=== PATIENT | male | born 1970 | race Caucasian/White ===

== ENCOUNTER 2023-12-14 10:10 | Day surgery (SDC) | payer OTHER ==
[2023-12-13 11:59] VITALS: BMI 23.8
[~2023-12-14 10:10] MED LIST: ALPRAZolam 0.25 MG TAB PO PRN; ALPRAZolam 0.5 MG TAB PO PRN; ASPIRIN 325 MG TAB PO STA; HEPARIN SODIUM,PORCINE (1 ML) 2,500 UNIT in SODIUM CHLORIDE 0.9% 250 ML IRRIGATION PRN; HEPARIN SODIUM,PORCINE 10,000 UNIT in SODIUM CHLORIDE 0.9% 1,000 ML IRRIGATION PRN; NITROGLYCERIN SL TABS 0.4 MG TAB SUBLINGUAL PRN
[2023-12-14] MEDS ORDERED: SODIUM CHLORIDE 0.9% 1,000 ML IV ONE (10:21)
[2023-12-14] MEDS ORDERED: VERAPAMIL 2.5 MG/ML 2 ML AMP ONE (11:44)
[2023-12-14] MEDS ORDERED: fentaNYL (PF) 50 MCG/ML 2 ML AMP ONE (11:44)
[2023-12-14] MEDS ORDERED: LIDOCAINE 1% INJ 10MG/ML (20 ML MDV) ONE (11:44)
[2023-12-14] MEDS ORDERED: HEPARIN SODIUM 1,000 UN/ML (10ML VL) ONE (11:44)
[2023-12-14] MEDS ORDERED: fentaNYL (PF) 50 MCG/ML 2 ML AMP IVP ONE (12:03)
[2023-12-14] MEDS ORDERED: MIDAZOLAM 2 MG/2 ML VIAL IVP ONE (12:03)
[2023-12-14] MEDS ORDERED: LIDOCAINE 1% INJ 10MG/ML (20 ML MDV) SQ ONE (12:05)
[2023-12-14 12:35] LABS: O2 Sat Blood Gas 67.8 %
[2023-12-14 12:37] LABS: O2 Sat Blood Gas 60.1 %
[2023-12-14] MEDS ORDERED: IOPAMIDOL-370 100ML BTL INJ ONE (12:50)
--- NOTE | 2023-12-14 16:14 | P.CARDCATH ---
Description of Procedure: PROCEDURES PERFORMED: Left and right heart catheterization, bilateral coronary angiography, ultrasound guided arterial access INDICATION: Unstable angina CONSENT:I have discussed the risks, benefits and alternative therapies for the above-mentioned procedure and for both sedation/analgesia as well as necessary blood product administration, if indicated, as they pertain to this patient. The patient has indicated understanding and acceptance of the risks and procedures discussed. PROCEDURE: After the risks, benefits and alternatives of the above mentioned procedure explained in detail with the patient, informed consent was obtained. Patient was taken to the catheterization lab and prepped and draped in usual fashion. Ultrasound guidance was used to assess for arterial access. There was no good venous access and given concern of prior fistula on left and right upper extremities, femoral approach was recommended. 1% lidocaine was used to anesthetize the right femoral area. A 6-Bur[place]ian sheath was placed in the right femoral artery and vein using modified Seldinger technique and ultrasound guidance. A 6Fr [place] Fariba catheter was advanced into the RA, RV, PA, PCWP position and pressure and oxygen saturations were obtained. Thermodilution was performed. Left coronary angiography was performed with a 6-[place]ian JL 4.0 catheter and right coronary angiography was performed with a 6-Bur[place]ian FR4 catheter in various views. A 6-[place] FR4 catheter was inserted into the left ventricle and pressure measurements were obtained. The right femoral angiogram was performed which showed inadequate anatomy for closure and therefore sheath left in place for manual closure. The patient tolerated the procedure well. Patient was transported back to the post catheterization holding area in stable condition. Conscious Sedation: Patient was monitored under the direct supervision of myself for conscious sedation using Versed and fentanyl for a total duration of 30 minutes HEMODYNAMICS: Ao: 172/56 LV: 171/3, LVEDP 16mmHg PCWP: 17 PA: 63/8 (33) RV: 67/1 RA: 8 PA oxygen saturation: 68% RA oxygen saturation: 60% FA oxygen saturation: 86% CO by BALDEV: 7.8 L/min CI by BALDEV: 4.5 L/min/m2 CO by thermodilution: 6.4 L/min CI by thermodilution: 3.74 L/min/m2 SELECTIVE CORONARY ARTERIOGRAPHY: LEFT MAIN: The left main is a large caliber vessel which bifurcates into the LAD and circumflex. There is no significant stenosis. LEFT ANTERIOR DESCENDING CORONARY ARTERY: LAD is a large caliber vessel which wraps around to the apex. There is a proximal LAD 90% stenosis and a mid LAD 50-60% more focal stenosis and otherwise mild luminal irregularities. There are left to right collaterals to the PDA. LEFT CIRCUMFLEX CORONARY ARTERY: Left circumflex is a moderate caliber vessel with a proximal 50-60% and mid 50% stenosis. RIGHT CORONARY ARTERY: The right coronary artery is a large caliber vessel which gives off a PDA and PLV branch and is the dominant vessel. There is a proximal 85% stenosis followed by a 50% mid RCA stenosis. FINAL IMPRESSION: 1. CAD as described above with 90% proximal LAD, 50-60% mid LAD, 50-60% circumflex and 85% proximal RCA stenosis 2. High normal left sided filling pressures 3. Pulmonary hypertension likely component of Group 2 and Group 3 4. Hypoxia with oxygen saturations dropping into 80's on room air 5. Normal cardiac output PLAN: 1. Aggressive risk factor modification per most recent ACC/AHA guidelines. 2. CABG evaluation and if deemed high risk would proceed with PCI RCA/LAD.
[2023-12-14] MEDS: SODIUM CHLORIDE 0.9% 1,000 ML in EMPTY BAG 1 BAG IV SCH ×2 (16:27→21:56)
[2023-12-14] MEDS ORDERED: ACETAMINOPHEN TAB 500 MG TAB PO PRN (21:07)
[2023-12-14] MEDS ORDERED: amLODIPine 10 MG TAB PO SCH (21:15)
[2023-12-14] MEDS ORDERED: METOPROLOL SUCCINATE (ER) 25 MG TAB.ER.24H PO SCH (21:15)
[2023-12-14] MEDS ORDERED: MONTELUKAST 10 MG TAB PO SCH (21:15)
[2023-12-14] MEDS ORDERED: lisinopriL 20 MG TAB PO SCH (21:15)
[2023-12-14] MEDS ORDERED: DOXAZOSIN 2 MG TAB PO SCH (21:15)
[2023-12-15] MEDS: cloNIDine HCL 0.1 MG TAB PO SCH ×2 (00:36→08:17)
[2023-12-15 00:45] VITALS: RESP 16
[2023-12-15] MEDS ORDERED: SEVELAMER 800 MG TAB PO SCH (07:30)
[2023-12-15] MEDS ORDERED: FUROSEMIDE 80 MG TAB PO SCH (09:00)
[2023-12-15] MEDS ORDERED: ASPIRIN 81 MG PO SCH (09:00)
[2023-12-15 09:04] VITALS: BP 152/65; PULSE 63; TEMP 99
--- NOTE | 2023-12-15 11:15 | P.DS ---
Providers Attending physician: Kenneth Kingsley DO Primary care physician: Physician [facility] Course: Patient is pleasant 53-year-old male with history of end-stage renal disease who has been having progressive dyspnea on exertion and chest pain concerning for unstable angina and therefore recommended to have heart catheterization performed. Patient had heart catheterization from a right femoral sites on 12/14 which showed multivessel CAD with recommendations for bypass. He was about by cardiothoracic surgery with outpatient follow-up. He did have a right femoral hematoma which was reduced with Femstop and currently without any hematoma today. He did miss his morning dialysis which is normally Wednesday and Wednesday. We discussed with nephrology and patient is scheduled for makeup session on 12/16 at his normal dialysis center. Plan - Discharge Summary Discharge Rx Participant: No New Discharge Prescriptions: No Action cloNIDine HCL [Catapres] 0.1 mg PO Q8HR Sevelamer Carbonate 800 mg PO AC-TID lisinopriL [Zestril] 40 mg PO HS amLODIPine [Norvasc] 10 mg PO HS Terazosin [Hytrin] 2 mg PO HS Montelukast [Singulair] 10 mg PO HS Metoprolol Succinate [Metoprolol Succinate ER] 25 mg PO HS Furosemide [Lasix] 80 mg PO BID Acetaminophen [Tylenol Extra Strength] 500 mg PO Q8HR PRN PRN Reason: Pain Aspirin 81 mg PO DAILY Discharge Medication List Acetaminophen [Tylenol Extra Strength] 500 mg PO Q8HR PRN 12/13/23 [History] Furosemide [Lasix] 80 mg PO BID 12/13/23 [History] Metoprolol Succinate [Metoprolol Succinate ER] 25 mg PO HS 12/13/23 [History] Montelukast [Singulair] 10 mg PO HS 12/13/23 [History] Terazosin [Hytrin] 2 mg PO HS 12/13/23 [History] amLODIPine [Norvasc] 10 mg PO HS 12/13/23 [History] lisinopriL [Zestril] 40 mg PO HS 12/13/23 [History] Aspirin 81 mg PO DAILY 12/14/23 [History] Sevelamer Carbonate 800 mg PO AC-TID 12/14/23 [History] cloNIDine HCL [Catapres] 0.1 mg PO Q8HR 12/14/23 [History] Follow up Appointment(s)/Referral(s): Kenneth Kingsley DO [STAFF PHYSICIAN] - 12/23/23 8:45 am Asher Farmer MD [STAFF PHYSICIAN] - 1 Week (Office will call you with appointment date and time) Patient Instructions/Handouts: *Surgery [facility] - After Heart Catheterization - Clinical Research Analyst Instructions Activity/Diet/Wound Care/Special Instructions: Go to dialysis on 12/16 at 6 am for missed dialysis. No driving for two days. Avoid heavy lifting greater than 10 lbs , pushing, pulling, straining, flights of stairs for three days. ok to shower tomorrow but no baths, pools, soaking in tubs for three days to avoid risk of infection. signs of infection ie: fever, rash, drainage from puncture site, swelling contact doctor or return to ER immediately. Heavy bleeding from puncture site apply firm direct pressure and return to ER. Do not attempt to drive self. low sodium/low fat diet Medications as directed by director social welfare.
== END 2023-12-15 12:27 | disposition home or self-care (01) ==
LOC: CATHCVL 10:10 → 6NMEDSUR 12:36 → CATHCVL 12-15 12:27
PROVIDERS: ATTEND Internal Medicine
DX: I25.10 Atherosclerotic heart disease of native coronary artery without angina pectoris (principal); I27.20 Pulmonary hypertension, unspecified; N18.6 End stage renal disease; Z99.2 Dependence on renal dialysis; Z79.82 Long term (current) use of aspirin; Z79.899 Other long term (current) drug therapy
CPT/HCPCS: 93460; 76937; 85018; 82810; C1769 ×3; C1894 ×2; C1751; J2250; J2001; J3010; Q9967

== ENCOUNTER 2024-01-19 11:06 | Day surgery (SDC) | payer OTHER ==
[2024-01-19] MEDS: SODIUM CHLORIDE 0.9% 500 ML 500 ML IV ONE (11:18)
[2024-01-19 11:37] VITALS: RESP 16; TEMP 97.9
[2024-01-19] MEDS ORDERED: fentaNYL (PF) 50 MCG/ML 2 ML AMP ONE (11:43)
[2024-01-19] MEDS: BENZOCAINE SPRAY 1 CAN TOPICAL ONE (11:56)
[2024-01-19] MEDS: fentaNYL (PF) 50 MCG/ML 2 ML AMP IVP ONE (12:00)
[2024-01-19] MEDS: MIDAZOLAM 2 MG/2 ML VIAL IVP ONE ×2 (12:00→12:02)
--- NOTE | 2024-01-19 13:13 | P.TEE ---
Description of Procedure(s): Procedure performed: Transesophageal Echocardiogram with color flow doppler, pulsed wave doppler and continuous wave doppler, moderate conscious sedation Moderate conscious sedation: Moderate conscious sedation was supplied with direct supervision of myself using Versed and Fentanyl. Complications: none Indications: Mitral regurgitation with need for CABG PROCEDURE: After the risks, benefits and alternatives of the above mentioned procedure was explained in detail with the patient, informed consent was obtained. Patient was brought to the lab in a fasting state. Patient was given IV Versed and Fentanyl for sedation. The throat was sprayed with Hurricane to anesthetize the throat. A lubricated Omni probe was then introduced into the esophagus and stomach and multiple views were obtained. 2D echo with color flow doppler, pulsed wave doppler and continuous wave doppler was utilized. Agitated saline bubbles were injected to assess for any intra-atrial shunt. The probe was then removed. Patient tolerated the procedure well. Patient was transferred to the post procedure area in stable and satisfactory condition. FINDINGS: 1. The aortic valve is tricuspid with aortic calcification and mild aortic stenosis. 2. The mitral valve has mild posterior leaflet calcification and moderate s econdary mitral regurgitation. Vena contractor 0.6, systolic blunting all consistent with moderate mitral regurgitation. 3. Tricuspid valve appears to be normal with moderate tricuspid regurgitatio n. 4. The interatrial septum is intact. No evidence of PFO. 5. Left atrial appendage is free of clot. 6. Left ventricular ejection fraction 55%
[2024-01-19 13:22] VITALS: BP 172/88; PULSE 59
== END 2024-01-19 13:12 | disposition home or self-care (01) ==
LOC: CATHCVL 11:06
PROVIDERS: ATTEND Internal Medicine
DX: I08.3 Combined rheumatic disorders of mitral, aortic and tricuspid valves (principal); I25.10 Atherosclerotic heart disease of native coronary artery without angina pectoris; I12.0 Hypertensive chronic kidney disease with stage 5 chronic kidney disease or end stage renal disease; N18.6 End stage renal disease; I48.0 Paroxysmal atrial fibrillation; E78.5 Hyperlipidemia, unspecified; Z95.5 Presence of coronary angioplasty implant and graft; Z99.2 Dependence on renal dialysis; Z79.899 Other long term (current) drug therapy; Z88.0 Allergy status to penicillin; Z79.82 Long term (current) use of aspirin
CPT/HCPCS: 93312; 93320; 93325; J2250; J3010

== ENCOUNTER 2024-01-31 13:43 | Emergency (ER) | payer OTHER ==
--- NOTE | 2024-01-31 13:51 | ED ---
General Adult HPI - General Stated complaint: Bump on hand Time Seen by Provider: 01/31/24 13:49 Source: patient, RN notes reviewed, old records reviewed - History of Present Illness Initial comments: This is a 53-year-old male who presents to the emergency department stating that he took a nap earlier today and when he woke up there was a small bump that was bluish in color on his right hand between the fourth and fifth metacarpal. Patient states it hurts to touch. Patient denies knowing of any trauma but he states he could have hit it while he was sleeping. Patient denies any bony tenderness. Patient denies any range of motion problems with the fingers or hand. Patient has no other complaints. - Related Data Home Medications Medication Instructions Recorded Confirmed Furosemide [Lasix] 80 mg PO BID 12/13/23 01/19/24 Metoprolol Succinate [Metoprolol 25 mg PO HS 12/13/23 01/19/24 Succinate ER] Montelukast [Singulair] 10 mg PO HS 12/13/23 01/19/24 Terazosin [Hytrin] 2 mg PO HS 12/13/23 01/19/24 amLODIPine [Norvasc] 10 mg PO HS 12/13/23 01/19/24 lisinopriL [Zestril] 40 mg PO HS 12/13/23 01/19/24 Sevelamer Carbonate 800 mg PO AC-TID 12/14/23 01/19/24 cloNIDine HCL [Catapres] 0.1 mg PO Q8HR 12/14/23 01/19/24 Isosorbide Mononitrate ER [Imdur] 30 mg PO DAILY 01/19/24 01/19/24 Allergies Allergy/AdvReac Type Severity Reaction Status Date / Time Penicillins AdvReac "I was a Verified 01/19/24 11:30 baby and i almost ." Review of Systems ROS Statement: Those systems with pertinent positive or pertinent negative responses have been documented in the HPI. ROS Other: All systems not noted in ROS Statement are negative. General Exam - General Exam Comments Initial Comments: GENERAL Patient is well-developed and well-nourished. Patient is in mild distress. EYES Patient's pupils are equal and round. Extraocular motion is intact SKIN Unremarkable NEURO The patient is alert and oriented -3 PYSCH Patient has normal interpersonal interactions. MUSCULOSKELETAL Patient's dorsal aspect of the right hand between the distal aspect of the fourth and fifth metacarpal is a small 1 cm hematoma. Patient has no bony tenderness Medical Decision Making - Medical Decision Making Was pt. sent in by a medical professional or institution (ANNA Mukherjee, FLOORING SALES MANAGER, urgent care, hospital, or halfway...) When possible be specific @ -No Did you speak to anyone other than the patient for history (EMS, parent, family, police, friend...)? What history was obtained from this source @ -No Did you review nursing and triage notes (agree or disagree)? Why? @ -I reviewed and agree with nursing and triage notes Were old charts reviewed (outside hosp., previous admission, EMS record, old EKG, old radiological studies, urgent care reports/EKG's, halfway records)? Report findings @ -No old charts were reviewed Differential Diagnosis (chest pain, altered mental status, abdominal pain women, abdominal pain men, vaginal bleeding, weakness, fever, dyspnea, syncope, headache, dizziness, GI bleed, back pain, seizure, CVA, palpatations, mental health, musculoskeletal)? @ -Not applicable EKG interpreted by me (3pts min.). @ -As above X-rays interpreted by me (1pt min.). @ -None done CT interpreted by me (1pt min.). @ -None done U/S interpreted by me (1pt. min.). @ -None done What testing was considered but not performed or refused? (CT, X-rays, U/S, labs)? Why? @ -None What meds were considered but not given or refused? Why? @ -None Did you discuss the management of the patient with other professionals (pro fessionals i.e. ANNA Mukherjee, FLOORING SALES MANAGER, lab, RT, psych nurse, social services analyst, sociology instructor, teacher, customs and border protection officer, wrapper caser)? Give summary @ -No Was smoking cessation discussed for >3mins.? @ -No Was critical care preformed (if so, how long)? @ -No Were there social determinants of health that impacted care today? How? (Homelessness, low income, unemployed, alcoholism, drug addiction, transportation, low edu. Level, literacy, decrease access to med. care, [facility], rehab)? @ -No Was there de-escalation of care discussed even if they declined (Discuss DNR or withdrawal of care, Hospice)? DNR status @ -No What co-morbidities impacted this encounter? (DM, HTN, Smoking, COPD, CAD, Cancer, CVA, ARF, Chemo, Hep., AIDS, mental health diagnosis, sleep apnea, morbid obesity)? @ -None Was patient admitted / discharged? Hospital course, mention meds given and route, prescriptions, significant lab abnormalities, going to OR and other pertinent info. @ -Patient has a hematoma on the hand there is no bony tenderness patient will be discharged home Undiagnosed new problem with uncertain prognosis? @ -No Drug Therapy requiring intensive monitoring for toxicity (Heparin, Nitro, Insulin, Cardizem)? @ -No Were any procedures done? @ -No Diagnosis/symptom? @ -Hematoma hand Acute, or Chronic, or Acute on Chronic? @ -Acute Uncomplicated (without systemic symptoms) or Complicated (systemic symptoms)? @ -Uncomplicated Side effects of treatment? @ -No Exacerbation, Progression, or Severe Exacerbation? @ -No Poses a threat to life or bodily function? How? (Chest pain, [place], [place], pneumonia, PE, COPD, DKA, ARF, appy, cholecystitis, CVA, Diverticulitis, Homicidal, Suicidal, threat to staff... and all critical care pts) @ -No Disposition Clinical Impression: Hematoma of hand Disposition: HOME SELF-CARE Condition: Good Instructions (If sedation given, give patient instructions): Hematoma (ED) Is patient prescribed a controlled substance at d/c from ED?: No Referrals: Nonstaff,Physician [Primary Care Provider] - 1-2 days Time of Disposition: 13:51
[2024-01-31 14:37] VITALS: BP 183/87; PULSE 68; RESP 16; TEMP 97.7
== END 2024-01-31 14:51 | disposition home or self-care (01) ==
LOC: EC 13:43
DX: S60.221A Contusion of right hand, initial encounter (principal); Z88.0 Allergy status to penicillin; X58.XXXA Exposure to other specified factors, initial encounter
CPT/HCPCS: 99284

== ENCOUNTER → 2024-10-19 | Day surgery (SDC) | payer OTHER ==
[~2024-10-19] MED LIST changes: -ASPIRIN 325 MG TAB PO STA; +ASPIRIN 81 MG PO SCH; +ATORVASTATIN 20 MG TAB PO SCH; +ATORVASTATIN 80 MG TAB PO ONE; +ATROPINE SULFATE 0.1 MG/ML 10ML SYRINGE IV PRN; +CLOPIDOGREL 75 MG TAB PO SCH; +FUROSEMIDE 80 MG TAB PO SCH; -HEPARIN SODIUM,PORCINE (1 ML) 2,500 UNIT in SODIUM CHLORIDE 0.9% 250 ML IRRIGATION PRN; -HEPARIN SODIUM,PORCINE 10,000 UNIT in SODIUM CHLORIDE 0.9% 1,000 ML IRRIGATION PRN; +ISOSORBIDE MONONITRATE ER 30 MG TAB.ER.24H PO SCH; +MAG HYDROX/AL HYDROX/SIMETH 30 ML CUP PO PRN; +METOPROLOL SUCCINATE (ER) 25 MG TAB.ER.24H PO SCH; +MONTELUKAST 10 MG TAB PO SCH; +RX INFO: IV CONTRAST WAS GIVEN 1 EACH MISC MISCELLANE PRN; +SEVELAMER 800 MG TAB PO SCH; +TERAZOSIN 2 MG PO SCH; +ZOLPIDEM 5 MG TAB PO PRN; +amLODIPine 10 MG TAB PO SCH; +cloNIDine HCL 0.1 MG TAB PO SCH; +lisinopriL 20 MG TAB PO SCH
[2024-10-19] MEDS: SODIUM CHLORIDE 0.9% 1,000 ML in EMPTY BAG 1 BAG IV SCH (09:39)
[2024-10-19] MEDS: ASPIRIN 325 MG TAB PO ONE (09:39)
[2024-10-19 10:32] LABS: Basophils % (A) 0 %; Eosinophils # (A) 0.1 k/uL (0-0.7); Eosinophils % (A) 2 %; HCT 33.2 % (39.0-53.0); HGB 11.4 gm/dL (13.0-17.5); Lymphocytes # (A) 1.1 k/uL (1.0-4.8); Lymphocytes % (A) 16 %; MCH 30.9 pg (25.0-35.0); MCHC 34.2 g/dL (31.0-37.0); MCV 90.4 fL (80.0-100.0); Mean Platelet Volume 7.9; Monocytes # (A) 0.5 k/uL (0-1.0); Monocytes % (A) 8 %; Neutrophils # (A) 4.7 k/uL (1.3-7.7); Neutrophils % (A) 72 %; Platelet Count 142 k/uL (150-450); RBC 3.68 m/uL (4.30-5.90); WBC 6.5 k/uL (3.8-10.6)
[2024-10-19 10:37] LABS: African American GFR (CKD) 8 (>60 ml/min/1.73 sqM); Anion Gap 6 mmol/L; Blood Urea Nitrogen 42 mg/dL (9-20); Carbon Dioxide 40 mmol/L (22-30); Chloride 94 mmol/L (98-107); Glucose 110 mg/dL (74-99); Non-African American GFR(CKD) 7 (>60 ml/min/1.73 sqM); Potassium 4.2 mmol/L (3.5-5.1); Sodium 140 mmol/L (137-145)
[2024-10-19] MEDS: IV FLUID CONTINUATION 1,000 ML IV ONE (10:40)
[2024-10-19] MEDS: SODIUM CHLORIDE 0.9% 1,000 ML IV ONE (10:58)
[2024-10-19] MEDS: HEPARIN SODIUM,PORCINE (1 ML) 2,500 UNIT in SODIUM CHLORIDE 0.9% 250 ML IRRIGATION PRN (10:58)
[2024-10-19] MEDS: HEPARIN SODIUM,PORCINE 10,000 UNIT in SODIUM CHLORIDE 0.9% 1,000 ML IRRIGATION PRN (10:58)
[2024-10-19 11:12] VITALS: RESP 16; TEMP 98.3
[2024-10-19] MEDS: fentaNYL (PF) 50 MCG/1 ML VIAL IVP ONE (11:25)
[2024-10-19] MEDS: MIDAZOLAM 2 MG/2 ML VIAL IVP ONE (11:25)
[2024-10-19] MEDS: LIDOCAINE 1% INJ 10MG/ML (20 ML MDV) SQ ONE (11:26)
[2024-10-19] MEDS: HEPARIN SODIUM 1,000 UN/ML (10ML VL) IVP ONE ×2 (11:30→11:34)
[2024-10-19] MEDS: NITROGLYCERIN 1000MCG/10ML SYRINGE INTRACORON ONE (11:39)
[2024-10-19] MEDS: IOPAMIDOL-370 100ML BTL INJ ONE ×2 (11:59→12:12)
[2024-10-19] MEDS: NITROGLYCERIN SL TABS 0.4 MG TAB SUBLINGUAL ONE (12:06)
--- NOTE | 2024-10-19 14:50 | P.PRCINT ---
Percutaneous Coronary Int. - Percutaneous Coronary Intervention Percutaneous Coronary Intervention: PROCEDURES PERFORMED: Left heart catheterization, bilateral coronary angiography, ultrasound guided arterial access, IVUS RCA, PCI RCA with a 3.5 x 12mm Xience RL, post dilated with a 4.0mm NC balloon INDICATION: Previous non-STEMI, chest pain [place] Heart Association class III symptoms with known CAD, patient refusing CABG CONSENT:I have discussed the risks, benefits and alternative therapies for the above-mentioned procedure and for both sedation/analgesia as well as necessary blood product administration, if indicated, as they pertain to this patient. The patient has indicated understanding and acceptance of the risks and procedures discussed. PROCEDURE: After the risks, benefits and alternatives of the above mentioned procedure explained in detail with the patient, informed consent was obtained. Patient was taken to the catheterization lab and prepped and draped in usual fashion. Ultrasound guidance was used to assess for arterial access. 1% lidocaine was used to anesthetize the right femoral artery given history of bilateral fistula UE. A 6-Malagasy sheath was placed in the right femoral artery using modified Seldinger technique and ultrasound guidance. Left coronary angiography was performed with a 6-[place]ag[place] CLS 3.0 catheter and right coronary angiography was performed with a 6-Malag[place] AL0.75 catheter in various views. A 5-[place]ag[place] FR5 catheter was inserted into the left ventricle and pressure measurements were obtained. The decision was made to perform PCI of the RCA. A 6-[place]ag[place] AL 0.75 guide was used to engage the RCA. A 0.014 BMW wire was advanced to the distal RCA. There was more diffuse mid to distal RCA disease however mainly felt best treated with the more focal proximal 90% stenosis. The dilation was performed with a 3.0 x 8 mm balloon. Next a neurovascular ultrasound showed reference vessel 3.5 mm with more aneurysmal midportion up to 5 mm. Next a 3.5 x 12 mm drug-eluting stent was placed in the proximal RCA. Repeated IV ultrasound showed some under expansion therefore the mid to distal portion was postdilated with a 4.0 noncompliant balloon. Repeat intravascular ultrasound showed well-expanded stent with no dissection. Final angiograms were performed. Preintervention there was 90% stenosis and LIA-3 flow and postintervention there was less than 10% stenosis with LIA 3 flow. Patient did have recurrence of chest pain and therefore angiogram was performed which showed patent RCA. The right femoral angiogram showed adequate anatomy for closure and therefore a 6Fr Angioseal was placed with hemostasis achieved. The patient tolerated the procedure well. Patient was transported back to the post catheterization holding area in stable condition. Conscious Sedation: Patient was monitored under the direct supervision of myself for conscious sedation using Versed and fentanyl for a total duration of 44 minutes HEMODYNAMICS: Ao: 143/71 LV: 156/8, LVEDP 12 SELECTIVE CORONARY ARTERIOGRAPHY: LEFT MAIN: The left main is a large caliber vessel which bifurcates into the LAD and circumflex. There is no significant stenosis. LEFT ANTERIOR DESCENDING CORONARY ARTERY: LAD is a large caliber vessel which wraps around to the apex. There is a proximal LAD 80% stenosis and a mid LAD 50-60% more focal stenosis and otherwise mild luminal irregularities. There are left to right collaterals to the PDA. LEFT CIRCUMFLEX CORONARY ARTERY: Left circumflex is a moderate caliber vessel with a proximal 60-70% and mid 50% stenosis. RIGHT CORONARY ARTERY: The right coronary artery is a large caliber vessel which gives off a PDA and PLV branch and is the dominant vessel. There is a proximal 90% stenosis followed by a 50% mid RCA stenosis. FINAL IMPRESSION: 1. CAD as described above with 80% proximal LAD, 50-60% mid LAD, 60-70% cir cumflex and 90% proximal RCA stenosis 2. S/p PCI RCA with a 3.5 x 12mm Xience RL, post dilated with a 4.0mm NC balloon PLAN: 1. Aggressive risk factor modification per most recent ACC/AHA guidelines. 2. Monitor response of PCI of RCA. If continues to have angina, may conisder PCI of left main into LAD 3. Continue dual antiplatelets with aspirin and Plavix for 6 months
[2024-10-19 18:09] VITALS: BP 166/76; PULSE 60
== END ==
LOC: CATHCVL 09:12
PROVIDERS: ATTEND Internal Medicine
DX: I25.10 Atherosclerotic heart disease of native coronary artery without angina pectoris (principal); I48.0 Paroxysmal atrial fibrillation; I12.0 Hypertensive chronic kidney disease with stage 5 chronic kidney disease or end stage renal disease; N18.6 End stage renal disease; Z99.2 Dependence on renal dialysis; I35.0 Nonrheumatic aortic (valve) stenosis; E78.5 Hyperlipidemia, unspecified; Z79.02 Long term (current) use of antithrombotics/antiplatelets; Z79.899 Other long term (current) drug therapy; Z86.74 Personal history of sudden cardiac arrest; Z88.0 Allergy status to penicillin
CPT/HCPCS: 92978; 93458; 80048; 85025; C9600; J2250; J1644 ×3; J2003; Q9967; J3010; J2305

== ENCOUNTER → 2025-01-16 | Outpatient (CLI) | payer OTHER ==
--- NOTE | 2025-01-16 08:54 | US ---
EXAMINATION TYPE: US abdomen complete DATE OF EXAM: 01/16/2025 COMPARISON: CT chest 01/17/2024 CLINICAL INDICATION: Male, 54 years old with history of R10.84 GENERALIZED ABDOMINAL PAIN; Epigastric pain, diarrhea TECHNIQUE: Grayscale and color Doppler imaging of the abdomen was performed. FINDINGS: EXAM MEASUREMENTS: Liver Length: 13.6 cm Gallbladder Wall: 0.2 cm CBD: 0.8 cm Spleen: 12.9 cm Right Kidney: 9.1 x 3.8 x 4.7 cm Left Kidney: 9.8 x 3.8 x 3.1 cm Pancreas: visualized portions wnl, limited by overlying midline bowel gas Liver: wnl Gallbladder: wnl Evidence for sonographic Huggins's sign: no CBD: dilated Spleen: multiple tiny echogenic foci throughout Right Kidney: multiple cysts with largest measuring 2.0cm Left Kidney: multiple cysts with largest measuring 2.4cm Upper IVC: wnl Abd Aorta: wnl The visualized portions of the pancreas unremarkable. The liver is within normal limits without focal lesion. Gallbladder demonstrates no shadowing calculi, wall thickening or surrounding fluid. Negativ e sonographic Huggins's sign. Common bile duct is mildly dilated. Multiple echogenic foci are demonstr ated throughout the spleen suggesting calcified granulomas. No hydronephrosis or solid renal masses. No renal shadowing calculi. Multiple simple appearing cysts identified within both kidneys. There is loss of cortical medullary differentiation bilaterally with cortical thinning. The intrahepatic porti on of the IVC and proximal abdominal aorta are within normal limits. IMPRESSION: 1. Mildly dilated common bile duct. Correlation with biliary labs is recommended. Consider further ev aluation with MRCP as clinically indicated. 2. Bilateral renal cysts with findings suggestive of chronic medical renal disease. [facility], , 01/16/2025 8:52 AM
== END | disposition home or self-care (01) ==
LOC: RADUSWWP 07:54
PROVIDERS: ATTEND Family Medicine
DX: K83.8 Other specified diseases of biliary tract (principal); N28.1 Cyst of kidney, acquired
CPT/HCPCS: 76700

== ENCOUNTER → 2025-02-15 | Outpatient (CLI) | payer OTHER ==
--- NOTE | 2025-02-15 12:23 | MR ---
EXAMINATION TYPE: MR MRCP DATE OF EXAM: 02/15/2025 10:36 AM COMPARISON: Ultrasound 01/16/2025 CLINICAL INDICATION: Male, 54 years old with history of K83.8 common bile duct dilation, Dilation Com mon bile duct, Abdominal pain, Abnormal US TECHNIQUE: Multiplanar, multisequence images of the abdomen are obtained without IV contrast. Highly T2 weighted sequences of the pancreatic biliary system also obtained for MRCP. Rotational 3-D reconst ructions generated on a dedicated independent workstation. FINDINGS: Heart is borderline enlarged. No pericardial or pleural effusion. The liver appears low signal on in phase T1-weighted sequence which may be seen with heavy metal depo sition. Suggestion of some possible signal loss within the spleen as well. Spleen mildly enlarged at 14.6 cm measured on coronal series. Numerous cysts replacing most of the renal parenchyma both sides measuring up to 3.3 cm. Diffuse chino l cortical thinning. No hydronephrosis. Gallbladder appears within normal limits. The bile duct is mildly dilated at 8 mm but shows normal di stal tapering. No abnormal filling defect is identified. Main pancreatic duct at the level of the pancreatic head is upper limits of normal in caliber at 4 mm . No distal obstructing lesion is seen. Adrenal glands and pancreas otherwise within normal limits. No ascites fluid, abdominal lymphadenopathy, or gross bowel abnormality is seen. IMPRESSION: 1. No gallstones. The bile duct is mildly dilated at 8 mm but shows normal distal tapering. Probably chronic for the patient. No choledocholithiasis or other abnormal filling defect is identified. Corre late for normal alkaline phosphatase and bilirubin levels. 2. Signal loss within both the liver and spleen on in-phase T1 sequence may be seen with iron deposit ion such as in the setting of secondary hemochromatosis. Clinically correlate. 3. Mild splenomegaly at 14.6 cm. 4. Multicystic kidneys and diffuse cortical thinning. Correlate for any known history of polycystic k idney disease. [facility], , 02/15/2025 12:21 PM
== END | disposition home or self-care (01) ==
LOC: RADMRIMAIN 09:24
PROVIDERS: ATTEND Family Medicine
DX: K83.8 Other specified diseases of biliary tract (principal); R16.1 Splenomegaly, not elsewhere classified; N28.1 Cyst of kidney, acquired; K76.89 Other specified diseases of liver
CPT/HCPCS: 74181